=== PATIENT | male | born 1975 | race Caucasian/White ===

== ENCOUNTER 2019-10-10 07:11 | Emergency (ER) | payer SELFPAY ==
[2019-10-10 07:34] VITALS: BP 135/68; PULSE 109; TEMP 98.4; BMI 42.5
--- NOTE | 2019-10-10 07:59 | PDOC ---
History of Present Illness - General History Source: Patient Exam Limitations: No Limitations - History of Present Illness Initial Comments: 10/10/19 07:52 44-year-old male with no past medical history presents the ED with an open draining wound behind the back of his right leg. Patient states area became tender and red 2 to 3 days ago and then opened draining purulent fluid a day ago. Patient states no history of MRSA no recent travel no recent illness. Patient does complain of discomfort to the area. Patient denies fever, chills and radiation of pain. Patient states did take Motrin last night and applied Neosporin to area. Is this a multiple visit Asthma Patient?: No Timing/Duration: getting worse Severity: mild Associated Symptoms: reports: denies symptoms <Juliana Duran - Last Filed: 10/17/19 18:14> <Michelle Ferro - Last Filed: 10/18/19 21:40> - General Chief Complaint: Wound Stated Complaint: INNER THIGH PAIN Time Seen by Provider: 10/10/19 07:41 Past History - Travel Traveled outside of the country in the last 30 days: No Close contact w/someone who was outside of country & ill: No - Past Medical History COPD: No - Psycho Social/Smoking Cessation Hx Smoking History: Current every day smoker Have you smoked in the past 12 months: Yes Number of Cigarettes Smoked Daily: 5 Information on smoking cessation initiated: Yes 'Breaking Loose' booklet given: 11/24/14 Hx Alcohol Use: Yes Drug/Substance Use Hx: No Substance Use Type: None Hx Substance Use Treatment: No Patient Lives Alone: No Lives with/in: spouse/SO <Juliana Duran - Last Filed: 10/17/19 18:14> <Michelle Ferro - Last Filed: 10/18/19 21:40> - Past Medical History Allergies/Adverse Reactions: Allergies Allergy/AdvReac Type Severity Reaction Status Date / Time No Known Allergies Allergy Verified 10/10/19 07:26 Home Medications: Ambulatory Orders Lactobacillus Acidophilus [Bacid -] 1 each PO BID #30 capsule 11/25/14 levoFLOXacin [Levaquin -] 500 mg PO DAILY #14 tablet 11/25/14 Cephalexin [Keflex] 500 mg PO BID #14 capsule 10/10/19 Sulfamethoxazole/Trimethoprim [Bactrim Ds -] 1 tab PO BID #14 tablet 10/10/19 Review of Systems - Review of Systems Able to Perform ROS?: Yes Constitutional: No: Symptoms Reported HEENTM: No: Symptoms Reported Integumentary: Yes: Lumps, Other Neurological: No: Symptoms reported <Juliana Duran - Last Filed: 10/17/19 18:14> *Physical Exam - Vital Signs Last Vital Signs Temp Pulse Resp BP Pulse Ox 98.4 F 109 H 18 135/68 100 10/10/19 07:26 10/10/19 07:26 10/10/19 07:26 10/10/19 07:26 10/10/19 07:26 - Physical Exam General Appearance: Yes: Nourished, Appropriately Dressed. No: Apparent Distress Extremity: positive: Normal Range of Motion Integumentary: positive: Other (Noted 1 cm open wound to the inner aspect of right posterior quadricep firm area surrounding approximately 2 cm in circumferential. No foul odor no palpable fluctuance) Neurologic: positive: Motor Strength 5/5 (Ambulatory) <Juliana Duran - Last Filed: 10/17/19 18:14> - Vital Signs Last Vital Signs Temp Pulse Resp BP Pulse Ox 98.4 F 109 H 18 135/68 100 10/10/19 07:26 10/10/19 07:26 10/10/19 07:26 10/10/19 07:26 10/10/19 07:26 <Michelle Ferro - Last Filed: 10/18/19 21:40> ED Treatment Course - ADDITIONAL ORDERS Additional order review: 10/10/19 08:07 Gram Stain - Final Leg - Right Upper Wound Culture - Final Alpha Hemolytic Streptococcus Staphylococcus Coagulase Neg <Michelle Ferro - Last Filed: 10/18/19 21:40> Medical Decision Making - Medical Decision Making 10/10/19 07:56 Chief complaint: Open draining wound to the posterior aspect of right upper leg , denies history of diabetes or MRSA Exam: Semi-firm open wound to inner upper posterior aspect of right leg draining purulent fluid with minimal expression no palpable fluctuance, no foul odor Plan: Wound culture obtained, patient to continue warm soaks/hot showers patient given work note x72 hours and will take Bactrim/Keflex. <Juliana Duran - Last Filed: 10/17/19 18:14> - Medical Decision Making The patient was seen and evaluated in conjunction with midlevel provider under my direct supervision, ancillary studies were reviewed. I agree with the plan as outlined with MIKAELA Duran. HPI, workup/dispo as outlined. VS reviewed, + tachy noted, likely from pain. no fever, nontoxic. bactrim/keflex for cellulitic infection/abscess already draining. anticipate discharge, pcp followup, return precautions 10/18/19 21:39 10/18/19 21:40 10/18/19 21:40 <Michelle Ferro - Last Filed: 10/18/19 21:40> Discharge - Discharge Information Problems reviewed: Yes - Admission No <Juliana Duran - Last Filed: 10/17/19 18:14> <Michelle Ferro - Last Filed: 10/18/19 21:40> - Discharge Information Clinical Impression/Diagnosis: Abscess Condition: Good Disposition: HOME - Additional Discharge Information Prescriptions: Cephalexin [Keflex] 500 mg PO BID #14 capsule Sulfamethoxazole/Trimethoprim [Bactrim Ds -] 1 tab PO BID #14 tablet - Patient Discharge Instructions Patient Printed Discharge Instructions: DI for Skin Abscess Additional Instructions: Please either apply hot towels or take a hot shower 4 times a day applying constant 15 minutes of heat for the next 72 hours. Wear brief underwears to promote scrotal elevation and allow area to avoid other bacteria. If area becomes increasingly painful more swollen or feels warm to touch despite taking antibiotics with recommendations please return to the ED as this may require follow-up. - Post Discharge Activity Work/Back to School Note: Back to Work
== END 2019-10-10 08:11 | disposition home or self-care (01) ==
LOC: JER 07:11
DX: L02.415 Cutaneous abscess of right lower limb (principal); F17.210 Nicotine dependence, cigarettes, uncomplicated
CPT/HCPCS: 87070; 87205; 99281-25

== ENCOUNTER 2023-11-18 00:46 | Emergency (ER) | payer SELFPAY ==
[2023-11-18 00:57] VITALS: BMI 41.8
[2023-11-18] MEDS ORDERED: ACETAMINOPHEN 1000 MG/100 ML BAG IVPB ONE (01:27)
[2023-11-18] MEDS ORDERED: SODIUM CHLORIDE 0.9% 1000 ML INFUS.BAG IV ONE (01:49)
[2023-11-18] MEDS ORDERED: ACETAMINOPHEN INJECTION 100 ML IVPB ONE (01:57)
[2023-11-18] MEDS: ALBUTEROL SO4 2.5/IPRATROPIUM 0.5 INH SOL 3 ML VIAL.NEB. NEB SCH ×3 (02:04→02:29)
[2023-11-18 02:32] LABS: BASO % 0.7 % (0-2.0); EOS % 0.4 % (0-4.5); HEMATOCRIT 37.6 % (35.4-49); HEMOGLOBIN 12.5 GM/dL (11.7-16.9); LYMPH % 10.4 % (8-40); MCH 30.6 pg (25.7-33.7); MCHC 33.4 g/dl (32.0-35.9); MEAN CELL VOLUME 91.6 fl (80-96); MEAN PLT VOLUME 7.9 fl (7.5-11.1); MONO % 6.2 % (3.8-10.2); NEUT % 82.3 % (42.8-82.8); PLATELET COUNT 328 10^3/uL (134-434); RDW 13.7 % (11.9-15.9); WHITE BLOOD COUNT 8.9 K/mm3 (4.0-10.0)
[2023-11-18 02:39] LABS: VENOUS BASE EXCESS 1.3 mmol/L (-2-2); VENOUS O2 SATURATION 83.9 % (70-80); VENOUS PCO2 39.9 mmHg (38-52); VENOUS PH 7.426 (7.310-7.410)
[2023-11-18 03:05] LABS: POTASSIUM 4.4 mmol/L (3.5-5.1)
[2023-11-18 03:06] LABS: CALCIUM 8.8 mg/dL (8.5-10.1)
[2023-11-18 03:07] LABS: ALBUMIN 3.4 g/dl (3.4-5.0); BLOOD UREA NITROGEN 10.2 mg/dL (7-18)
[2023-11-18 03:10] LABS: CREATININE 1.3 mg/dL (0.55-1.3)
[2023-11-18 03:12] LABS: BILIRUBIN,TOTAL 0.3 mg/dL (0.2-1); TOT PROT 7.5 g/dl (6.4-8.2)
[2023-11-18] MEDS ORDERED: IBUPROFEN 600 MG TABLET (FP) PO ONE ×2 (04:47→04:51)
[2023-11-18 07:13] VITALS: RESP 20
[2023-11-18 10:50] VITALS: BP 109/62; PULSE 95; TEMP 98.1
== END 2023-11-18 12:00 | disposition admitted as inpatient to this hospital (09) ==
LOC: JER 00:46 → JERBED 05:03 → UNDOADMOB 05:03 → JER 12:00
PROC: 3E033NZ Introduction of Analgesics, Hypnotics, Sedatives into Peripheral Vein, Percutaneous Approach (ICD-10-PCS; principal; 2023-11-18)
PROC: 3E0F7GC Introduction of Other Therapeutic Substance into Respiratory Tract, Via Natural or Artificial Opening (ICD-10-PCS; 2023-11-18)
DX: R06.02 Shortness of breath (principal); R50.9 Fever, unspecified; R05.9 Cough, unspecified; J10.1 Influenza due to other identified influenza virus with other respiratory manifestations; Z20.822 Contact with and (suspected) exposure to COVID-19
CPT/HCPCS: 0241U-QW; 36415; 71045-TC-FY; 80053; 82803; 82962; 83605; 83880; 84484; 85025; 87040; 93005; 93010; 99285-25; J0131